=== PATIENT | female | born 1995 | race Caucasian/White ===

== ENCOUNTER 2018-07-25 14:15 | Observation (INO) ==
--- NOTE | 2018-07-25 13:35 | OB/GYN Progress Note ---
Date of Encounter: 07/25/18 Time of Encounter: 13:35 - Assessment and Plan (1) Fall (on) (from) other stairs and steps, initial encounter Current Visit: Yes Status: Acute Plan to monitor FHT for 4 hours from time of fall. US for fluid and placenta. CBC and fibrinogen. Blood type O positive. Tylenol and flexeril for pain. POC discussed with Dr. Schwarz (2) 25 weeks gestation of Current Visit: Yes Status: Acute FHT reassuring for GA at this time. Subjective - Subjective Interval history: 23 year-old presenting at 25w3d s/p fall at noon today. She reports she was walking down the stairs with a basket in her arms and slipped down 4 stars on her left hip and back. She reports pain in her left back and hip. No contractions, leaking, or bleeding. Good FM. Objective - Exam FHR comments: 145 BPM reassuring for GA Auscultation: bilateral: normal Abdomen: Present: soft, gravid Comments: toco quiet Bruising noted on left hip. Pt able to move joint without difficulty. Pt also has back pain in left lower back. No bruising in that area.
[2018-07-25 13:43] LABS: Amphetamine Screen,Urine Negative ng/mL (Cutoff=1000); Barbiturate Screen,Urine Negative ng/mL (Cutoff=200); Benzodiazepines Screen,Urine Negative ng/mL (Cutoff=200); Cannabinoid Screen,Urine Negative ng/mL (Cutoff = 50); Cocaine Screen,Urine Negative ng/mL (Cutoff= 300); Opiate Screen,Urine Negative ng/mL (Cutoff=300); Phencyclidine Screen,Urine Negative ng/mL (Cutoff=25)
[~2018-07-25 14:15] MED LIST: Acetaminophen 325 MG TABLET PO ONE
[2018-07-25 14:27] LABS: Basophils # 0.1 K/mcL (0.0-0.2); Basophils % 0.4 %; Eosinophils # 0.2 K/mcL (0.0-0.6); Eosinophils % 1.1 %; Hematocrit 34.2 % (35.3-44.9); Hemoglobin 11.3 g/dL (11.5-15.4); Immature Granulocytes % 1.2 % (0-4); Lymphocytes % 11.9 %; Mean Corpuscular Volume 87.7 fL (83.0-100.0); Mean Platelet Volume 10.7 fL (9.4-12.4); Monocytes % 5.8 %; Neutrophils # 13.3 K/mcL (1.6-8.9); Platelet Count 296 K/mcL (140-400); Red Cell Distribution Width 12.7 % (11.5-14.5); Segmented Neutrophils % 79.6 %
== END 2018-07-25 16:50 | disposition home or self-care (01) ==
LOC: 1NENULAB
PROVIDERS: ADMIT Registered Nurse; ATTEND Registered Nurse